=== PATIENT | male | born 2000 | race Caucasian/White ===

== ENCOUNTER 2020-02-11 08:25 | Emergency (ER) | payer OTHER, SELFPAY ==
[2020-02-11 08:38] VITALS: BP 122/64; PULSE 60; RESP 18; TEMP 37.1; O2SAT 100
--- NOTE | 2020-02-11 08:54 | ED.URI ---
HPI - URI/Sore Throat General Chief Complaint: Upper Respiratory Infection Stated Complaint: sore throat Time Seen by Provider: 02/11/20 08:45 Source: patient and RN notes reviewed Mode of arrival: ambulatory Limitations: no limitations History of Present Illness HPI Narrative: 19 year old male who [facility] with complaints of sore throat since last pm. Patient states that he also has a runny nose and nasal congestion, denies any fevers, chills or sweats, no ear pain, cough or headache pain. Patient states that he has had strep throat in the past year and concerned he has it again and wants tested. Patient has clear lungs on auscultation with respirations even and nonlabored, no tachypnea or accessory muscle use noted,SAO2 100% on room air. MD elicited complaint: sore throat, rhinorrhea and nasal congestion Pertinent past history: other (strep throat last year) Onset (ago): day(s) (1) Consistency: constant Severity: moderate Pain scale (0-10): 6 Description of mucous: clear Able to tolerate fluids by mouth: Yes Exacerbating factors: swallowing Relieving factors: nothing Associated symptoms: denies other symptoms Treatments prior to arrival: acetaminophen Review of Systems Review of Systems: Narrative: CONSTITUTIONAL: Denies known fever, chills, or sweats. EYES: Denies visual changes, redness, or discharge. ENT: Positive rhinorrhea, nasal congestion, sore throat, no otalgia. CARDIOVASCULAR: Denies chest pain, palpitations, or edema. RESPIRATORY: Denies cough or dyspnea. GASTROINTESTINAL: Denies abdominal pain, nausea, vomiting, or diarrhea. GENITOURINARY: Denies dysuria or hematuria. SKIN: Denies rash or itching. MUSCULOSKELETAL: Denies back pain, joint pain, or myalgia. NEUROLOGIC: Denies headache, numbness, or weakness. PSYCHIATRIC: Denies anxiety or depression. All systems reviewed & are unremarkable except as noted in HPI and below PMFSH Past Medical History Medical History (Updated 02/11/20 @ 09:36 by Naty De La Fuente NP) Strep pharyngitis Social History Social History (Updated 02/11/20 @ 09:37 by Naty De La Fuente NP) Tobacco type: e-cigarettes/vaping Living arrangements: with family Gender identity (if verbalized by the patient): Male Comments At time of signature, agree with nursing past medical, surgical, social history. There is no relevant family history pertinent to the presenting complaint Exam Narrative: Exam Narrative: GENERAL: Well-appearing, well-nourished, and in no acute distress. HEAD: Normocephalic, atraumatic. EYES: PERRLA and EOMI. ENT: Nares patent, clear rhinorrhea no epistaxis. Mucous membranes moist.TM's normal with good light reflex, throat with some erythema, no lesions or exudates, no tonsil enlargement. post nasal drainage noted. NECK: Supple.no lymphadenopathy CHEST: Clear to auscultation. No respiratory distress.SAO2 100% on room air HEART: Regular rate and rhythm. No murmur heard. Normal peripheral pulses. ABDOMEN: Soft, nontender, nondistended, normal active bowel sounds. EXTREMITIES: Normal range of motion. No edema. SKIN: Warm, dry, no rash. NEURO: No focal deficits. Alert and oriented x3. Course Vital Signs Vital signs: Vital Signs Temperature 37.1 C 02/11/20 08:38 Pulse Rate 60 02/11/20 08:38 Respiratory Rate 18 02/11/20 08:38 Blood Pressure 122/64 02/11/20 08:38 Pulse Oximetry 100 02/11/20 08:38 Temperature 37.1 C 02/11/20 08:38 Pulse Rate 60 02/11/20 08:38 Respiratory Rate 18 02/11/20 08:38 Blood Pressure 122/64 02/11/20 08:38 Pulse Oximetry 100 02/11/20 08:38 MDM - URI/Sore Throat Differential Diagnosis Differential diagnosis: Likely upper respiratory infection, sinusitis, viral infection, pharyngitis and other (strep throat) Medical Records Attestation: I reviewed the patient's medical records. Lab Data Attestation: I reviewed the patient's lab results. Lab results narrative: Strep test negative Critical C
== END 2020-02-11 09:10 | disposition home or self-care (01) ==
PROVIDERS: Emergency Provider Registered Nurse
DX: J06.9 Acute upper respiratory infection, unspecified (principal); F17.200 Nicotine dependence, unspecified, uncomplicated
CPT/HCPCS: 87081; 87880; 99213; G0463